=== PATIENT | male | born 1970 | race African-American/Black ===

== ENCOUNTER 2016-06-03 10:17 | Emergency (ER) | payer SELFPAY ==
[~2016-06-03] VITALS: Ht 177.8 cm; Wt 105.0 kg
[~2016-06-03 10:17] MED LIST: CLIN1CAP6 PO
[2016-06-03 10:23] VITALS: BP 148/104; PULSE 66; RESP 20; TEMP 98; O2SAT 95
[2016-06-03 10:37] VITALS: BP 151/103; PULSE 60; RESP 18; O2SAT 100
[2016-06-03] MEDS ORDERED: amLODIPine BESYLATE 5 MG TAB PO ONE (11:15)
--- NOTE | 2016-06-03 11:27 | PD ---
HPI Chief Complaint: Hypertension Time Seen by Provider: 10:51 Travel History International Travel<30 days: No Contact w/Intl Traveler<30days: No Traveled to known affect area: No History of Present Illness HPI Patient is a 45-year-old male with history of chronic right ankle pain, presents to emergency room for evaluation of hypertension. Patient reports that he went to his pain management doctor a few days ago and reports that his blood pressure was elevated at that time. Patient reports that his systolic blood pressure was around 180s, patient reports no history of hypertension the past. Patient reports that he has been monitoring his blood pressure daily and reports that his blood pressure goes from systolics of 140s to 180s. Patient reports that he had a slight frontal headache yesterday, reports that the headache was completely resolved after he took 3 tablets of Aleve. Patient reports no headache at this time. Patient denies any vision changes. Patient denies chest pain or shortness of breath. Patient here for evaluation of hypertension. Patient reports that he has not seen his primary care doctor for this as he cannot afford to be seen by primary care doctor and currently does not have insurance. Patient with no complaints at this time. PFSH Past Medical History Asthma: No Autoimmune Disease: No Blood Disorders: No Cancer: No Cardiac Catheterization: No Cardiovascular Problems: Yes Chemotherapy: No Chest Pain: Yes Congestive Heart Failure: No COPD: No Diabetes: No Diminished Hearing: No Endocrine: No Gastrointestinal Disorders: No Genitourinary: No Immune Disorder: No Implanted Vascular Access Dvce: Yes Musculoskeletal: Yes (RIGHT ANKLE WOUND/EDEMA) Neurologic: Yes (SEIZURES) Psychiatric: No Reproductive: No Respiratory: No Radiation Therapy: No Seizures: Yes Sleep Apnea: No Past Surgical History Body Medical Devices: RIGHT ANKLE Coronary Artery Bypass Graft: No Other Surgery: No (SKIN GRAFT) Family History Family Myocardial Infarction: Yes Social History Alcohol Use: Yes (SOCIALLY) Tobacco Use: Yes (8-9 CIGS DAILY) Substance Use: No Allergies-Medications (Allergen,Severity, Reaction): Coded Allergies: Darvocet-N 100 (Verified Allergy, Severe, 08/10/13) *MDRO Multi-Drug Resistant Organism (Verified Allergy, 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/13) 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 Morphine (Verified Adverse Reaction, Severe, Itching, 08/10/13) Reported Meds & Prescriptions Reported Meds & Active Scripts Active Review of Systems General / Constitutional: No: Fever Eyes: No: Visual changes HENT: No: Headaches Cardiovascular: No: Chest Pain or Discomfort, Palpitations, Irregular Rhythm Respiratory: No: Shortness of Breath Gastrointestinal: No: Abdominal Pain Genitourinary: No: Dysuria Musculoskeletal: No: Pain Skin: No Rash Neurologic: No: Weakness Psychiatric: No: Depression Endocrine: No: Polydipsia Hematologic/Lymphatic: No: Easy Bruising Physical Exam Narrative GENERAL: No acute distress, nontoxic SKIN: Warm and dry. HEAD: Atraumatic. Normocephalic. EYES: Pupils equal and round. No scleral icterus. No injection or drainage. ENT: No nasal bleeding or discharge. Mucous membranes pink and moist. NECK: Trachea midline. No JVD. CARDIOVASCULAR: Regular rate and rhythm. No murmur appreciated. RESPIRATORY: No accessory muscle use. Clear to auscultation. Breath sounds equal bilaterally. GASTROINTESTINAL: Abdomen soft, non-tender, nondistended. Hepatic and splenic margins not palpable. MUSCULOSKELETAL: No obvious deformities. No clubbing. No cyanosis. No edema. NEUROLOGICAL: Awake and alert. No obvious cranial nerve deficits. Motor grossly within normal limits. Normal speech. PSYCHIATRIC: Appropriate mood and affect; insight and judgment normal. Data Data Last Documented VS Vital Signs Date Time Temp Pulse Resp B/P Pulse Ox O2 Delivery O2 Flow Rate FiO2 06/03/16 13:00 65 18 159/66 100 Room Air 06/03/16 10:23 98.0 Orders Isolation 08,20 (06/03/16 10:44) Electrocardiogram (06/03/16 11:04) Complete Blood Count With Diff (06/03/16 11:04) Comprehensive Metabolic Panel (06/03/16 11:04) Ecg Monitoring (06/03/16 11:04) Iv Access Insert/Monitor (06/03/16 11:04) Urinalysis - C+S If Indicated (06/03/16 11:04) Amlodipine (Norvasc) (06/03/16 11:15) Labs Laboratory Tests Test 06/03/16 06/03/16 10:49 11:18 Urine Color YELLOW Urine Turbidity CLEAR Urine pH 7.0 Urine Specific [place] 1.019 Urine Protein NEG mg/dL Urine Glucose (UA) NEG mg/dL Urine Ketones NEG mg/dL Urine Occult Blood NEG Urine Nitrite NEG Urine Bilirubin NEG Urine Urobilinogen LESS THAN 2.0 MG/DL Urine Leukocyte Esterase NEG Urine RBC LESS THAN 1 /hpf Urine WBC 1 /hpf Urine Squamous Epithelial <1 /hpf Cells Urine Mucus FEW /lpf Microscopic Urinalysis Comment CULT NOT INDICATED White Blood Count 6.2 TH/MM3 Red Blood Count 4.69 MIL/MM3 Hemoglobin 14.4 GM/DL Hematocrit 42.2 % Mean Corpuscular Volume 90.0 FL Mean Corpuscular Hemoglobin 30.7 PG Mean Corpuscular Hemoglobin 34.1 % Concent Red Cell Distribution Width 12.8 % Platelet Count 351 TH/MM3 Mean Platelet Volume 7.4 FL Neutrophils (%) (Auto) 46.8 % Lymphocytes (%) (Auto) 40.6 % Monocytes (%) (Auto) 7.0 % Eosinophils (%) (Auto) 4.3 % Basophils (%) (Auto) 1.3 % Neutrophils # (Auto) 2.9 TH/MM3 Lymphocytes # (Auto) 2.5 TH/MM3 Monocytes # (Auto) 0.4 TH/MM3 Eosinophils # (Auto) 0.3 TH/MM3 Basophils # (Auto) 0.1 TH/MM3 CBC Comment DIFF FINAL Differential Comment Sodium Level 140 MEQ/L Potassium Level 3.8 MEQ/L Chloride Level 104 MEQ/L Carbon Dioxide Level 27.0 MEQ/L Anion Gap 9 MEQ/L Blood Urea Nitrogen 14 MG/DL Creatinine 1.06 MG/DL Estimat Glomerular Filtration 92 ML/MIN Rate Random Glucose 96 MG/DL Calcium Level 8.5 MG/DL Total Bilirubin 0.7 MG/DL Aspartate Amino Transf 33 U/L (AST/SGOT) Alanine Aminotransferase 70 U/L (ALT/SGPT) Alkaline Phosphatase 85 U/L Total Protein 8.0 GM/DL Albumin 4.3 GM/DL [facility] Medical Decision Making Medical Screen Exam Complete: Yes Emergency Medical Condition: Yes Interpretation(s) EKG at 1129: No sinus rhythm at 66 bpm, QT/QTc 405/418, right bundle-branch block, no acute ST-T wave changes Vital Signs Date Time Temp Pulse Resp B/P Pulse Ox O2 Delivery O2 Flow Rate FiO2 06/03/16 10:42 65 18 100 Room Air 06/03/16 10:37 60 18 151/103 100 Room Air 06/03/16 10:23 98.0 66 20 148/104 95 Room Air Differential Diagnosis Accelerated hypertension, new onset hypertension Narrative Course Patient is a 45-year-old male who presents to emergency room with complaints of hypertension. Patient has been checking his blood pressures for the past few days and noted it to be high. Patient does not take any medications for this, reports that he has not had insurance to follow up with primary care doctor. Patient requesting aide at this time. Patient's blood pressure in the emergency room 151/103 as well as 148/104. Patient did have headache yesterday, reports complete resolution symptoms today. Patient with normal neurological exam with no cranial nerve deficits. Plan to check CBC, BMP, EKG and evaluate for end organ damage. Patient understand importance of following up with a PCP for hypertension as a physician will have to monitor his blood pressures. Will start patient on Norvasc 5 mg as this is a free medication at [facility]. Call made to financial counselor to help patient get aide and medical care as outpatient. Patient reevaluated, patient with no complaints at this time. I reviewed all labs and studies with patient. Discuss with him need to follow-up with his primary care doctor. Discussed need for close follow-up and blood pressure. We'll start patient on Norvasc this time, signs and symptoms of when to return to the emergency room reviewed with patient. Diagnosis Primary Impression: Hypertension Qualified Code: I10 - Essential hypertension Patient Instructions: General Instructions Additional Instructions: Please follow-up with your primary care doctor as soon as possible Return to ER as needed Please have your doctor recheck your blood pressure, you may return to the emergency room for blood pressure recheck if you are not able to see your primary care doctor Med/Other Pt SpecificInfo: Prescription(s) given Scripts Amlodipine (Norvasc)5 Mg Tab5 Mg PO DAILY #30 TAB Ref 0 Prov:Gneeva Burkett DO 06/03/16 Disposition: 01 DISCHARGE HOME Condition: Stable [place] Burkett DO Jun 03, 2016 11:27
[2016-06-03 11:35] LABS: AUTOMATED NEUTROPHIL # 2.9 TH/MM3 (1.8-7.7); BASOPHIL # 0.1 TH/MM3 (0-0.2); BASOPHIL % 1.3 % (0.0-2.0); EOSINOPHIL # 0.3 TH/MM3 (0-0.4); EOSINOPHIL % 4.3 % (0.0-4.0); HEMATOCRIT 42.2 % (39.0-51.0); HEMO FLAGS DIFF FINAL; LYMPH % 40.6 % (9.0-44.0); LYMPHOCYTE # 2.5 TH/MM3 (1.0-4.8); MEAN CORPUSCULAR HEMOGLOBIN 30.7 PG (27.0-34.0); MEAN CORPUSCULAR HGB CONC 34.1 % (32.0-36.0); NEUT % 46.8 % (16.0-70.0); PLATELET COUNT 351 TH/MM3 (150-450); RED BLOOD COUNT 4.69 MIL/MM3 (4.50-5.90); RED CELL DISTRIBUTION WIDTH 12.8 % (11.6-17.2); WHITE BLOOD COUNT 6.2 TH/MM3 (4.0-11.0)
[2016-06-03 11:45] LABS: BLOOD, URINE NEG (NEG); COMMENT (UR) CULT NOT INDICATED; CULTURE IF INDICATED CULT NOT INDICATED; GLUCOSE,URINE NEG (NEG); KETONE, URINE NEG (NEG); MUCUS URINE FEW /lpf (OCC); NITRITE,URINE NEG (NEG); SQUAMOUS EPITHELIAL CELL URINE <1 /hpf (0-5); URINE COLOR YELLOW (YELLW/STRAW)
[2016-06-03 11:55] LABS: ANION GAP 9 MEQ/L (5-15); AST (GOT) 33 U/L (15-37); BLOOD UREA NITROGEN 14 MG/DL (7-18); CHLORIDE 104 MEQ/L (98-107); GLOMERULAR FILTRATION RATE 92 ML/MIN (>89); POTASSIUM 3.8 MEQ/L (3.5-5.1); SODIUM (NA) 140 MEQ/L (136-145)
[2016-06-03 11:58] LABS: ALKALINE PHOSPHATASE 85 U/L (45-117); ALT (GPT) 70 U/L (12-78); TOTAL BILIRUBIN ADULT 0.7 MG/DL (0.2-1.0)
[2016-06-03 13:00] VITALS: BP 159/66; PULSE 65; RESP 18; O2SAT 100
[2016-06-03] MEDS ORDERED: AMLO5 PO (13:11)
--- NOTE | 2016-06-04 14:17 | EKG ---
Date Performed: 06/03/2016 Time Performed: 11:29:53 PTAGE: 45 years EKG: Sinus rhythm RIGHT BUNDLE BRANCH BLOCK ABNORMAL ECG Compared to prior tracing no significant change PREVIOUS TRACING : 08/05/2013 20.05 DOCTOR: Marck Vega Interpretating Date/Time 06/04/2016 14:12:41
== END 2016-06-03 13:43 | disposition home or self-care (01) ==
LOC: NEPA 10:17
DX: I10 Essential (primary) hypertension (principal); R56.9 Unspecified convulsions; Z72.0 Tobacco use
CPT/HCPCS: 80053; 81001; 85025; 93005